=== PATIENT | male | born 1970 | race Caucasian/White ===

== ENCOUNTER → 2016-06-25 | Outpatient (CLI) | payer BC ==
[~2016-06-25] MED LIST: AMLODIPINE BESY10 MG PO; ASPIRIN ENTERI325 M1 PO; CARDURA8 MG PO; DILTIAZEM 24HR360 M1 PO; ERGOCAL PO; FENOFIBRATE160 MG PO; FERRO-TIME325 MG PO; GABAPENTIN300 M2 PO; HUMALOG MI100 UNIT/3 SUBQ; HYDRALAZINE HC100 MG PO; HYDRALAZINE HCL50 MG PO; KAYEXALATE453.6 GM PO; LASIX20 MG PO; LIPITOR40 MG PO; METOCLOPRAMIDE H5 MG PO; NOVOLOG MI100 UNIT/1 SUBQ; ONDANSETRO8 MG/UDTAB PO; PANTOPRAZOLE SO40 MG PO; PERCOCET7.5 PO; PROAIR HFA8.5 GM IH; VICTOZA0.6 MG/0.1 SUBQ; VITAMIN D1000 UNIT PO; XARELTO20 MG PO
== END | disposition home or self-care (01) ==
LOC: CSSDAY 09:00
DX: D50.9 Iron deficiency anemia, unspecified (principal); Z79.899 Other long term (current) drug therapy
CPT/HCPCS: 96374; Q0138

== ENCOUNTER → 2016-07-02 | Outpatient (CLI) | payer BC | END | disposition home or self-care (01) | LOC: CSSDAY 14:27 | DX: D50.9 Iron deficiency anemia, unspecified (principal); Z79.899 Other long term (current) drug therapy | CPT/HCPCS: 96374; Q0138 ==